=== PATIENT | female | born 1955 | race African-American/Black ===

== ENCOUNTER 2022-06-29 13:22 | Inpatient (IN) | payer OTHER ==
[~2022-06-29] VITALS: Ht 165.1 cm; Wt 80.1 kg
[2022-06-29] MEDS ORDERED: SODIUM CHLORIDE 0.9% 1,000 ML IV ONE (14:15)
[2022-06-29 14:30] LABS: Basophils # (auto) 0 10 ^3/uL (0-0.2); Basophils % (auto) 0.4 % (0.0-2.0); Eosinophils # (auto) 0.1 10 ^3/uL (0-0.8); Eosinophils % (auto) 1.1 % (0.0-7.0); Hematocrit 30.8 % (36.0-46.0); Hemoglobin 10.3 g/dL (12.2-16.2); Lymphocytes # (auto) 0.8 10 ^3/uL (0.4-5.4); Lymphocytes % (auto) 9.6 % (10.0-50.0); Mean Corpuscular Hemoglobin 29.1 pg (28.0-32.0); Mean Corpuscular Hgb Conc. 33.6 g/dL (32.0-36.0); Mean Corpuscular Volume 86.5 fL (80.0-100.0); Monocytes # (auto) 0.3 10 ^3/uL (0-1.3); Monocytes % (auto) 3.9 % (0.0-12.0); Neutrophils # (auto) 6.8 10 ^3/uL (1.6-8.6); Nucleated Red Blood Cells % 0.2 %; Red Blood Cells 3.56 10^6/uL (4.0-5.20); Red Cell Distribution Width 15.7 % (11.8-14.3); White Blood Cell 8.1 10^3/uL (4.4-10.8)
[2022-06-29 15:49] LABS: Anion Gap 11 (5-15); Carbon Dioxide 20 mmol/L (21-32); Chloride 107 mmol/L (98-107); Glucose 116 mg/dL (74-106); Potassium 3.9 mmol/L (3.5-5.1); Sodium 138 mmol/L (136-145)
[2022-06-29 15:50] LABS: Alanine Aminotransferase 9 U/L (13-56); Albumin 3.1 g/dL (3.4-5.0); Alkaline Phosphatase 84 U/L (45-117); Aspartate Aminotransferase 11 U/L (15-37); BUN/Creatinine Ratio 18.9 (10.0-20.0); Bilirubin, Total 0.4 mg/dL (0.2-1.0); GFR African American 12 mL/min; GFR Non-African American 10 mL/min; Total Protein 8.2 g/dL (6.4-8.2)
[2022-06-29 15:55] LABS: Blood Urea Nitrogen 87 mg/dL (7-18); Calcium 5.8 mg/dL (8.5-10.1)
[2022-06-29] MEDS ORDERED: cloNIDine HCL 0.1 MG TAB PO ONE (16:41)
[2022-06-29] MEDS ORDERED: CALCIUM GLUC 1,000mg/50ml-NS 50 ML IV ONE (16:45)
[2022-06-29] MEDS ORDERED: NITROGLYCERIN 0.4 MG SL TAB SL PRN (18:00)
[2022-06-29] MEDS: SODIUM CHLORIDE 0.9% 1,000 ML IV SCH (18:00)
[2022-06-29] MEDS ORDERED: ONDANSETRON HCL 4 MG/2 ML VIAL IV PRN (18:00)
[2022-06-29] MEDS ORDERED: MORPHINE SULFATE INJ 2 MG/ml SYRG IV PRN (18:00)
[2022-06-29] MEDS ORDERED: FURO80TA3 PO (18:03)
[2022-06-29] MEDS ORDERED: CALC667C PO (18:03)
[2022-06-29] MEDS ORDERED: FERR325T20 PO (18:03)
[2022-06-29] MEDS ORDERED: LABE100T4 PO (18:03)
[2022-06-29] MEDS ORDERED: LEVO125T7 PO (18:03)
[2022-06-29] MEDS ORDERED: DEXTROSE (50%) 50ML SYRG IV PRN (18:15)
[2022-06-29] MEDS: CALCIUM ACETATE 667 MG CAP PO SCH (18:20)
[2022-06-29] MEDS: FUROSEMIDE 40 MG TAB PO SCH (18:33)
[2022-06-29] MEDS: ACCU-CHEK COMFORT CURVE STRIP VI SCH (22:23)
[2022-06-29] MEDS: InsuLIN REG 1unit/0.01ml Soln (100units/ml) SC SCH (22:24)
[2022-06-29] MEDS: ATORVASTATIN 20 MG TAB PO SCH (22:29)
[2022-06-29] MEDS: LABETALOL HCL 200 MG TAB PO SCH (22:31)
[2022-06-30] MEDS: SODIUM CHLORIDE 0.9% 1,000 ML IV SCH ×2 (04:09→14:00)
[2022-06-30 05:26] LABS: Basophils # (auto) 0 10 ^3/uL (0-0.2); Basophils % (auto) 0.4 % (0.0-2.0); Eosinophils # (auto) 0.1 10 ^3/uL (0-0.8); Eosinophils % (auto) 1.8 % (0.0-7.0); Hematocrit 29.1 % (36.0-46.0); Hemoglobin 9.9 g/dL (12.2-16.2); Lymphocytes # (auto) 1.1 10 ^3/uL (0.4-5.4); Mean Corpuscular Hemoglobin 29.3 pg (28.0-32.0); Mean Corpuscular Hgb Conc. 33.9 g/dL (32.0-36.0); Mean Corpuscular Volume 86.4 fL (80.0-100.0); Monocytes # (auto) 0.4 10 ^3/uL (0-1.3); Monocytes % (auto) 5.2 % (0.0-12.0); Neutrophils # (auto) 5.1 10 ^3/uL (1.6-8.6); Neutrophils % (auto) 76.6 % (37.0-80.0); Nucleated Red Blood Cells % 0.1 %; Red Blood Cells 3.36 10^6/uL (4.0-5.20); Red Cell Distribution Width 15.4 % (11.8-14.3); White Blood Cell 6.7 10^3/uL (4.4-10.8)
[2022-06-30 05:30] LABS: Albumin 2.8 g/dL (3.4-5.0); Potassium 3.7 mmol/L (3.5-5.1)
[2022-06-30 05:37] LABS: BUN/Creatinine Ratio 20.9 (10.0-20.0); Bilirubin, Total 0.4 mg/dL (0.2-1.0); Total Protein 7.6 g/dL (6.4-8.2)
[2022-06-30 05:42] LABS: Calcium 5.9 mg/dL (8.5-10.1)
[2022-06-30] MEDS: InsuLIN REG 1unit/0.01ml Soln (100units/ml) SC SCH ×4 (06:30→22:00)
[2022-06-30] MEDS: ACCU-CHEK COMFORT CURVE STRIP VI SCH ×4 (06:30→22:04)
[2022-06-30] MEDS: LEVOTHYROXINE SODIUM 50 MCG TAB PO SCH (06:38)
[2022-06-30] MEDS: FUROSEMIDE 40 MG TAB PO SCH ×2 (06:39→18:19)
[2022-06-30] MEDS: CALCIUM GLUC 1,000mg/50ml-NS 50 ML IV SCH ×2 (08:40→12:40)
[2022-06-30] MEDS: CALCIUM ACETATE 667 MG CAP PO SCH ×3 (08:49→18:18)
[2022-06-30] MEDS ORDERED: LORazepam 2MG/ML-1ML VIAL IV PRN (09:45)
[2022-06-30] MEDS ORDERED: CALCIUM GLUC 1,000mg/50ml-NS 50 ML IV SCH (12:00)
[2022-06-30] MEDS: CLOPIDOGREL BISULFATE 75 MG TAB PO SCH (12:41)
[2022-06-30] MEDS: LABETALOL HCL 200 MG TAB PO SCH ×2 (12:41→22:04)
[2022-06-30] MEDS: PANTOPRAZOLE 40 MG TAB PO SCH (12:42)
[2022-06-30] MEDS: FERROUS SULFATE 325mg EC TAB PO SCH (12:42)
[2022-06-30] MEDS: amLODIPine BESYLATE 5 MG TAB PO SCH (12:43)
[2022-06-30 17:04] VITALS: BP 157/91
[2022-06-30 17:05] VITALS: BP 157/91
[2022-06-30 21:35] LABS: Albumin 2.9 g/dL (3.4-5.0); Potassium 3.5 mmol/L (3.5-5.1)
[2022-06-30 21:39] LABS: BUN/Creatinine Ratio 20.5 (10.0-20.0); Bilirubin, Total 0.4 mg/dL (0.2-1.0); Total Protein 7.5 g/dL (6.4-8.2)
[2022-06-30 21:55] VITALS: BP 150/94
[2022-06-30] MEDS: ATORVASTATIN 20 MG TAB PO SCH (22:03)
[2022-07-01 02:26] LABS: Urine Bacteria NONE SEEN /hpf (None Seen); Urine Blood 1+ /uL (Negative); Urine Mucus FEW (None Seen); Urine Specific Gravity 1.009 (1.001-1.035); Urine WBC 2 /hpf (0 - 5)
[2022-07-01 02:40] LABS: Protein, Urine 35.4 mg/dL (0.0-11.9)
[2022-07-01 02:42] LABS: Alcohol, Urine < 3.0 mg/dL (0-10); Amphetamine Screen, Urine NEGATIVE (NEGATIVE); Barbiturate Scree,Urine NEGATIVE (NEGATIVE); Benzodiazephine Screen, Urine NEGATIVE (NEGATIVE); Cannabinoid Screen, Urine POSITIVE (NEGATIVE); Cocaine Screen, Urine NEGATIVE (NEGATIVE)
[2022-07-01 02:49] LABS: Opiate Scree,Urine NEGATIVE (NEGATIVE); Phencyclidine Screen, Urine NEGATIVE (NEGATIVE)
[2022-07-01 05:00] VITALS: BP 153/86
[2022-07-01] MEDS: SODIUM CHLORIDE 0.9% 1,000 ML IV SCH ×3 (05:42→20:00)
[2022-07-01] MEDS: FUROSEMIDE 40 MG TAB PO SCH ×2 (05:42→19:07)
[2022-07-01] MEDS: LEVOTHYROXINE SODIUM 50 MCG TAB PO SCH (05:50)
[2022-07-01 05:53] LABS: BUN/Creatinine Ratio 21.1 (10.0-20.0); Calcium 6.3 mg/dL (8.5-10.1); Potassium 3.6 mmol/L (3.5-5.1)
[2022-07-01] MEDS: ACCU-CHEK COMFORT CURVE STRIP VI SCH ×4 (05:59→22:00)
[2022-07-01] MEDS: InsuLIN REG 1unit/0.01ml Soln (100units/ml) SC SCH ×4 (06:00→22:00)
[2022-07-01 06:31] LABS: Basophils # (auto) 0 10 ^3/uL (0-0.2); Basophils % (auto) 0.4 % (0.0-2.0); Eosinophils # (auto) 0.2 10 ^3/uL (0-0.8); Eosinophils % (auto) 2.4 % (0.0-7.0); Hematocrit 28.1 % (36.0-46.0); Hemoglobin 9.8 g/dL (12.2-16.2); Lymphocytes # (auto) 1.2 10 ^3/uL (0.4-5.4); Lymphocytes % (auto) 18.2 % (10.0-50.0); Mean Corpuscular Hemoglobin 30.1 pg (28.0-32.0); Mean Corpuscular Volume 86.1 fL (80.0-100.0); Monocytes # (auto) 0.4 10 ^3/uL (0-1.3); Monocytes % (auto) 5.4 % (0.0-12.0); Neutrophils % (auto) 73.6 % (37.0-80.0); Nucleated Red Blood Cells % 0.1 %; Red Blood Cells 3.27 10^6/uL (4.0-5.20); Red Cell Distribution Width 15.6 % (11.8-14.3); White Blood Cell 6.7 10^3/uL (4.4-10.8)
[2022-07-01 08:58] VITALS: BP 134/83
[2022-07-01] MEDS: CALCIUM ACETATE 667 MG CAP PO SCH ×3 (12:00→19:07)
[2022-07-01] MEDS: PANTOPRAZOLE 40 MG TAB PO SCH (12:18)
[2022-07-01] MEDS: amLODIPine BESYLATE 5 MG TAB PO SCH (12:19)
[2022-07-01] MEDS: FERROUS SULFATE 325mg EC TAB PO SCH (12:20)
[2022-07-01] MEDS: CLOPIDOGREL BISULFATE 75 MG TAB PO SCH (12:20)
[2022-07-01] MEDS: LABETALOL HCL 200 MG TAB PO SCH ×2 (12:21→22:30)
[2022-07-01 12:49] VITALS: BP 128/77
[2022-07-01 16:33] VITALS: BP 119/72
[2022-07-01 20:00] VITALS: BP 132/75
[2022-07-01 22:00] VITALS: BP 132/75
[2022-07-01] MEDS: ATORVASTATIN 20 MG TAB PO SCH (22:26)
[2022-07-02] VITALS (7 sets, daily range): BP systolic 128–152; BP diastolic 69–88
[2022-07-02] MEDS: FUROSEMIDE 40 MG TAB PO SCH ×2 (05:50→18:57)
[2022-07-02] MEDS: ACCU-CHEK COMFORT CURVE STRIP VI SCH ×4 (05:52→21:09)
[2022-07-02 06:38] LABS: Basophils # (auto) 0 10 ^3/uL (0-0.2); Basophils % (auto) 0.7 % (0.0-2.0); Eosinophils # (auto) 0.1 10 ^3/uL (0-0.8); Eosinophils % (auto) 2.2 % (0.0-7.0); Hematocrit 28.8 % (36.0-46.0); Lymphocytes # (auto) 1.1 10 ^3/uL (0.4-5.4); Lymphocytes % (auto) 17.6 % (10.0-50.0); Mean Corpuscular Hemoglobin 29.3 pg (28.0-32.0); Mean Corpuscular Hgb Conc. 34.7 g/dL (32.0-36.0); Mean Corpuscular Volume 84.5 fL (80.0-100.0); Monocytes # (auto) 0.4 10 ^3/uL (0-1.3); Monocytes % (auto) 6.2 % (0.0-12.0); Neutrophils # (auto) 4.4 10 ^3/uL (1.6-8.6); Neutrophils % (auto) 73.3 % (37.0-80.0); Nucleated Red Blood Cells % 0.1 %; Red Blood Cells 3.41 10^6/uL (4.0-5.20); Red Cell Distribution Width 15.5 % (11.8-14.3)
[2022-07-02] MEDS: InsuLIN REG 1unit/0.01ml Soln (100units/ml) SC SCH ×4 (06:50→21:11)
[2022-07-02 06:51] LABS: Potassium 3.2 mmol/L (3.5-5.1)
[2022-07-02 06:54] LABS: BUN/Creatinine Ratio 20.9 (10.0-20.0)
[2022-07-02] MEDS: SODIUM CHLORIDE 0.9% 1,000 ML IV SCH ×2 (06:55→17:05)
[2022-07-02 07:00] LABS: Calcium 5.9 mg/dL (8.5-10.1)
[2022-07-02] MEDS: LEVOTHYROXINE SODIUM 50 MCG TAB PO SCH (07:01)
[2022-07-02] MEDS ORDERED: CALCIUM GLUC 1,000mg/50ml-NS 50 ML IV ONE (07:45)
[2022-07-02] MEDS: CALCIUM ACETATE 667 MG CAP PO SCH ×3 (08:21→18:57)
[2022-07-02] MEDS: amLODIPine BESYLATE 5 MG TAB PO SCH (11:33)
[2022-07-02] MEDS: FERROUS SULFATE 325mg EC TAB PO SCH (11:33)
[2022-07-02] MEDS: CLOPIDOGREL BISULFATE 75 MG TAB PO SCH (11:34)
[2022-07-02] MEDS: LABETALOL HCL 200 MG TAB PO SCH ×2 (11:34→21:02)
[2022-07-02] MEDS: PANTOPRAZOLE 40 MG TAB PO SCH (11:34)
[2022-07-02] MEDS: POTASSIUM CHL 20MEQ/100ML 100 ML IV SCH ×2 (17:04→20:58)
[2022-07-02] MEDS ORDERED: CALCIUM CARB 500 MG CHEW TAB PO SCH (18:00)
[2022-07-02] MEDS: CALCITRIOL 0.25 MCG CAP PO SCH (18:58)
[2022-07-02] MEDS: ATORVASTATIN 20 MG TAB PO SCH (20:58)
[2022-07-03] MEDS: SODIUM CHLORIDE 0.9% 1,000 ML IV SCH ×3 (02:00→22:45)
[2022-07-03 05:00] VITALS: BP 137/76
[2022-07-03 05:43] LABS: Basophils # (auto) 0 10 ^3/uL (0-0.2); Basophils % (auto) 0.5 % (0.0-2.0); Eosinophils # (auto) 0.1 10 ^3/uL (0-0.8); Eosinophils % (auto) 2.2 % (0.0-7.0); Hematocrit 28.4 % (36.0-46.0); Hemoglobin 9.7 g/dL (12.2-16.2); Lymphocytes # (auto) 1.3 10 ^3/uL (0.4-5.4); Mean Corpuscular Hemoglobin 29.3 pg (28.0-32.0); Mean Corpuscular Hgb Conc. 34.3 g/dL (32.0-36.0); Mean Corpuscular Volume 85.6 fL (80.0-100.0); Monocytes # (auto) 0.4 10 ^3/uL (0-1.3); Monocytes % (auto) 6.5 % (0.0-12.0); Neutrophils # (auto) 3.8 10 ^3/uL (1.6-8.6); Neutrophils % (auto) 67.8 % (37.0-80.0); Nucleated Red Blood Cells % 0.1 %; Red Blood Cells 3.31 10^6/uL (4.0-5.20); Red Cell Distribution Width 15.7 % (11.8-14.3); White Blood Cell 5.5 10^3/uL (4.4-10.8)
[2022-07-03 05:58] LABS: BUN/Creatinine Ratio 20.6 (10.0-20.0); Potassium 3.4 mmol/L (3.5-5.1)
[2022-07-03] MEDS: FUROSEMIDE 40 MG TAB PO SCH ×2 (06:24→18:42)
[2022-07-03] MEDS: LEVOTHYROXINE SODIUM 50 MCG TAB PO SCH (06:25)
[2022-07-03] MEDS: ACCU-CHEK COMFORT CURVE STRIP VI SCH ×4 (06:31→22:48)
[2022-07-03] MEDS: InsuLIN REG 1unit/0.01ml Soln (100units/ml) SC SCH ×4 (06:31→22:00)
[2022-07-03 06:51] LABS: Calcium 5.8 mg/dL (8.5-10.1)
[2022-07-03] MEDS ORDERED: CALCIUM GLUC 1,000mg/50ml-NS 50 ML IV ONE ×2 (07:15→18:30)
[2022-07-03 09:00] VITALS: BP 141/91
[2022-07-03] MEDS: CALCITRIOL 0.25 MCG CAP PO SCH (09:47)
[2022-07-03] MEDS: CALCIUM ACETATE 667 MG CAP PO SCH ×3 (09:50→18:41)
[2022-07-03] MEDS: CLOPIDOGREL BISULFATE 75 MG TAB PO SCH (09:54)
[2022-07-03] MEDS: FERROUS SULFATE 325mg EC TAB PO SCH (09:54)
[2022-07-03] MEDS: LABETALOL HCL 200 MG TAB PO SCH ×2 (09:54→22:46)
[2022-07-03] MEDS: amLODIPine BESYLATE 5 MG TAB PO SCH (09:55)
[2022-07-03] MEDS: PANTOPRAZOLE 40 MG TAB PO SCH (10:00)
[2022-07-03] MEDS ORDERED: POTASSIUM CHL 20 Meq TABLET PO ONE (10:00)
[2022-07-03] MEDS: CALCIUM CARB 500 MG CHEW TAB PO SCH ×2 (12:01→18:42)
[2022-07-03 13:00] VITALS: BP 155/92
[2022-07-03 17:00] VITALS: BP 142/102
[2022-07-03 20:00] VITALS: BP 150/90
[2022-07-03 22:00] VITALS: BP 150/90
[2022-07-03] MEDS: ATORVASTATIN 20 MG TAB PO SCH (22:45)
[2022-07-04 05:00] VITALS: BP 164/92
[2022-07-04 05:35] LABS: Potassium 3.2 mmol/L (3.5-5.1)
[2022-07-04 05:38] LABS: BUN/Creatinine Ratio 20.1 (10.0-20.0); Calcium 7.1 mg/dL (8.5-10.1)
[2022-07-04] MEDS: LEVOTHYROXINE SODIUM 50 MCG TAB PO SCH (06:44)
[2022-07-04] MEDS: FUROSEMIDE 40 MG TAB PO SCH ×2 (06:44→18:00)
[2022-07-04] MEDS: InsuLIN REG 1unit/0.01ml Soln (100units/ml) SC SCH ×4 (06:49→22:00)
[2022-07-04] MEDS: ACCU-CHEK COMFORT CURVE STRIP VI SCH ×4 (06:49→22:46)
[2022-07-04 09:14] VITALS: BP 151/86
[2022-07-04] MEDS ORDERED: CALCIUM GLUC 1,000mg/50ml-NS 50 ML IV ONE (09:15)
[2022-07-04] MEDS ORDERED: amLODIPine BESYLATE 5 MG TAB PO ONE (09:30)
[2022-07-04] MEDS: SODIUM CHLORIDE 0.9% 1,000 ML IV SCH ×2 (10:28→18:00)
[2022-07-04] MEDS: CALCIUM ACETATE 667 MG CAP PO SCH ×3 (10:29→18:00)
[2022-07-04] MEDS: LABETALOL HCL 200 MG TAB PO SCH ×2 (10:31→21:48)
[2022-07-04] MEDS: CALCIUM CARB 500 MG CHEW TAB PO SCH ×3 (10:31→18:00)
[2022-07-04] MEDS: CALCITRIOL 0.25 MCG CAP PO SCH (10:32)
[2022-07-04] MEDS: CLOPIDOGREL BISULFATE 75 MG TAB PO SCH (10:32)
[2022-07-04] MEDS: amLODIPine BESYLATE 5 MG TAB PO SCH (10:34)
[2022-07-04] MEDS: PANTOPRAZOLE 40 MG TAB PO SCH (10:35)
[2022-07-04] MEDS: FERROUS SULFATE 325mg EC TAB PO SCH (10:35)
[2022-07-04] MEDS: POTASSIUM CHLORIDE 8 MEQ TAB PO SCH ×2 (10:35→21:48)
[2022-07-04] MEDS: POTASSIUM CHL 20MEQ/100ML 100 ML IV SCH ×2 (10:37→13:12)
[2022-07-04] MEDS ORDERED: CLOP75TA70 PO (12:27)
[2022-07-04] MEDS ORDERED: POTA8TAB38 PO (12:27)
[2022-07-04] MEDS ORDERED: FURO40TA4 PO (12:27)
[2022-07-04] MEDS ORDERED: CALC667C5 PO ×2 (12:27)
[2022-07-04] MEDS ORDERED: AML5T PO (12:27)
[2022-07-04 12:40] VITALS: BP 162/96
[2022-07-04 16:00] LABS: BUN/Creatinine Ratio 17.1 (10.0-20.0); Calcium 6.9 mg/dL (8.5-10.1); Potassium 3.6 mmol/L (3.5-5.1)
[2022-07-04 16:39] VITALS: BP 150/83
[2022-07-04 22:00] VITALS: BP 154/90
[2022-07-05 05:00] VITALS: BP 136/87
[2022-07-05] MEDS: InsuLIN REG 1unit/0.01ml Soln (100units/ml) SC SCH ×3 (06:12→17:00)
[2022-07-05] MEDS: LEVOTHYROXINE SODIUM 50 MCG TAB PO SCH (06:41)
[2022-07-05] MEDS: FUROSEMIDE 40 MG TAB PO SCH ×2 (06:42→18:00)
[2022-07-05] MEDS: SODIUM CHLORIDE 0.9% 1,000 ML IV SCH ×2 (06:46→14:00)
[2022-07-05] MEDS: ACCU-CHEK COMFORT CURVE STRIP VI SCH ×3 (06:46→17:00)
[2022-07-05] MEDS: CALCIUM ACETATE 667 MG CAP PO SCH ×3 (08:38→18:00)
[2022-07-05] MEDS: LABETALOL HCL 200 MG TAB PO SCH (08:42)
[2022-07-05] MEDS: amLODIPine BESYLATE 5 MG TAB PO SCH (08:43)
[2022-07-05] MEDS: PANTOPRAZOLE 40 MG TAB PO SCH (08:43)
[2022-07-05] MEDS: CLOPIDOGREL BISULFATE 75 MG TAB PO SCH (08:44)
[2022-07-05] MEDS: FERROUS SULFATE 325mg EC TAB PO SCH (08:44)
[2022-07-05] MEDS: POTASSIUM CHLORIDE 8 MEQ TAB PO SCH (08:44)
[2022-07-05] MEDS: CALCIUM CARB 500 MG CHEW TAB PO SCH ×3 (08:50→18:00)
[2022-07-05 09:00] VITALS: BP 120/66
[2022-07-05 10:00] VITALS: BP 128/87
[2022-07-05 10:51] LABS: Calcium 7.4 mg/dL (8.5-10.1); Potassium 3.7 mmol/L (3.5-5.1)
[2022-07-05 10:53] LABS: BUN/Creatinine Ratio 17.3 (10.0-20.0)
[2022-07-05] MEDS ORDERED: CALCIUM GLUC 1,000mg/50ml-NS 50 ML IV ONE (11:30)
[2022-07-05] MEDS: CALCITRIOL 0.25 MCG CAP PO SCH (12:17)
[2022-07-05 13:00] VITALS: BP 113/73
[2022-07-05 15:00] VITALS: BP 113/73
[2022-07-05 16:37] VITALS: BP 128/87
== END 2022-07-05 18:40 | disposition home health service (06) | DRG 304 ==
LOC: ER 13:22 → EDBD 13:22 → TELE 17:58 → TELE-WESTW 06-30 16:47
PROVIDERS: ADMIT Nurse Practitioner Family; ATTEND Internal Medicine
DX: I16.1 Hypertensive emergency (principal); N17.0 Acute kidney failure with tubular necrosis; E44.0 Moderate protein-calorie malnutrition; E03.9 Hypothyroidism, unspecified; I12.9 Hypertensive chronic kidney disease with stage 1 through stage 4 chronic kidney disease, or unspecified chronic kidney disease; N18.30 Chronic kidney disease, stage 3 unspecified; I65.23 Occlusion and stenosis of bilateral carotid arteries; H53.8 Other visual disturbances; E83.39 Other disorders of phosphorus metabolism; F17.200 Nicotine dependence, unspecified, uncomplicated; E87.6 Hypokalemia; E83.51 Hypocalcemia; N25.0 Renal osteodystrophy; Z68.29 Body mass index [BMI] 29.0-29.9, adult; I69.334 Monoplegia of upper limb following cerebral infarction affecting left non-dominant side; Z79.02 Long term (current) use of antithrombotics/antiplatelets; Z90.710 Acquired absence of both cervix and uterus; Z88.6 Allergy status to analgesic agent; Z82.49 Family history of ischemic heart disease and other diseases of the circulatory system
CPT/HCPCS: 36415; 70450; 70551; 71045; 76775; 80048; 80053; 80061; 80307; 81001; 82306; 82310; 82570; 82962; 83036; 83880; 83970; 84100; 84156; 84300; 84443; 84484; 85025; 86304; 93005; 93306; 93886; 96365; 97110; 97116; 97163; 97530; G0378; J1815; J3480

== ENCOUNTER 2022-07-06 15:50 | Emergency (ER) | payer OTHER ==
[~2022-07-06] VITALS: Ht 165.1 cm; Wt 72.0 kg
[~2022-07-06 15:50] MED LIST: AML5T PO; CALC667C PO; CLOP75TA70 PO; FERR325T20 PO; FURO40TA4 PO; LABE100T4 PO; LEVO125T7 PO; POTA8TAB38 PO
[2022-07-06] MEDS ORDERED: SODIUM CHLORIDE 0.9% 1,000 ML IV ONE (19:15)
[2022-07-06 19:59] LABS: Basophils # (auto) 0 10 ^3/uL (0-0.2); Basophils % (auto) 0.5 % (0.0-2.0); Eosinophils # (auto) 0.2 10 ^3/uL (0-0.8); Eosinophils % (auto) 2.8 % (0.0-7.0); Hematocrit 30.5 % (36.0-46.0); Lymphocytes # (auto) 0.9 10 ^3/uL (0.4-5.4); Lymphocytes % (auto) 13.4 % (10.0-50.0); Mean Corpuscular Hemoglobin 28.5 pg (28.0-32.0); Mean Corpuscular Hgb Conc. 32.7 g/dL (32.0-36.0); Mean Corpuscular Volume 87.2 fL (80.0-100.0); Monocytes # (auto) 0.3 10 ^3/uL (0-1.3); Monocytes % (auto) 4.6 % (0.0-12.0); Neutrophils # (auto) 5.1 10 ^3/uL (1.6-8.6); Neutrophils % (auto) 78.7 % (37.0-80.0); Nucleated Red Blood Cells % 0.1 %; Red Cell Distribution Width 16.1 % (11.8-14.3); White Blood Cell 6.5 10^3/uL (4.4-10.8)
[2022-07-06 20:12] LABS: Albumin 3.1 g/dL (3.4-5.0); Calcium 6.9 mg/dL (8.5-10.1); Potassium 4.6 mmol/L (3.5-5.1)
[2022-07-06 20:16] LABS: BUN/Creatinine Ratio 17.1 (10.0-20.0); Bilirubin, Total 0.4 mg/dL (0.2-1.0); Total Protein 7.8 g/dL (6.4-8.2)
[2022-07-06 23:00] VITALS: BP 146/90
== END 2022-07-07 00:10 | disposition home or self-care (01) ==
LOC: EDUNIT# 15:50 → EDBD 15:50 → ER 15:50 → EDSEX 15:50 → ER 07-07 00:10
DX: R42 Dizziness and giddiness (principal); I12.9 Hypertensive chronic kidney disease with stage 1 through stage 4 chronic kidney disease, or unspecified chronic kidney disease; N18.9 Chronic kidney disease, unspecified; Z88.6 Allergy status to analgesic agent; Z79.899 Other long term (current) drug therapy; Z86.73 Personal history of transient ischemic attack (TIA), and cerebral infarction without residual deficits
CPT/HCPCS: 36415; 70450; 71045; 80053; 83690; 84443; 84484; 85025; 87040; 93005; 96360; 99285; J7030